=== PATIENT | female | born 1930 | race Caucasian/White ===

== ENCOUNTER 2017-06-17 15:46 | Inpatient (IN) | payer MEDICARE ==
[~2017-06-17 15:46] MED LIST: AMIODARONE 150 MG INJ; CA CHLORIDE 10% 10 ML SYRINGE; EPINEPHrine 0.1 MG/ML SYG; NA BICARBONATE 8.4% 50 ML SYG
[2017-06-17 16:37] LABS: ADD MAN DIFF? NO
[2017-06-17 16:57] LABS: EOSINOPHILS % 0.6 % (0.0-7.0); HEMATOCRIT 31.5 % (37.0-47.0); HEMOGLOBIN 10.3 g/dl (12.0-16.0); LYMPHOCYTES # 2.3 10^3/ul (0.8-2.9); MEAN CORPUSCULAR HEMOGLOBIN 32.7 pg (29.0-33.0); MEAN CORPUSCULAR HGB CONC 32.7 g/dl (32.0-37.0); MEAN PLATELET VOLUME 10.2 fl (7.4-10.4); MONOCYTE # 0.2 10^3/ul (0.3-0.9); NEUTROPHIL # 2.5 10^3/ul (1.6-7.5); NUCLEATED RED BLOOD CELLS% 0.4 /100WBC (0.0-0.0); PLATELET COUNT 155 10^3/UL (140-415); RED BLOOD COUNT 3.15 10^6/ul (4.20-5.40); RED CELL DISTRIBUTION WIDTH 16.3 % (11.5-14.5)
[2017-06-17] MEDS: SOD CHLORIDE 0.9% 2,170 ML IV (16:58)
[2017-06-17 17:03] LABS: INR 1.06; PARTIAL THROMBOPLASTIN TIME 25.9 Sec (25.0-35.0); PROTIME 13.9 Sec (11.9-14.9); PT RATIO 1.1
[2017-06-17 17:08] LABS: ALANINE AMINOTRANSFERASE 24 IU/L (13-69); ALBUMIN/GLOBULIN RATIO 0.72; ALKALINE PHOSPHATASE 88 IU/L (42-121); ANION GAP 16 (8-16); ASPARTATE AMINO TRANSFERASE 35 IU/L (15-46); BILIRUBIN,INDIRECT 0.3 mg/dl (0-1.1); BILIRUBIN,TOTAL 0.3 mg/dl (0.2-1.3); BLOOD UREA NITROGEN 18 mg/dl (7-20); CARBON DIOXIDE 23 mmol/L (21-31); CHLORIDE 108 mmol/L (97-110); CREATINE KINASE 70 IU/L (23-200); CREATININE 0.96 mg/dl (0.44-1.00); GLUCOSE 134 mg/dl (70-220); POTASSIUM 3.7 mmol/L (3.5-5.1); SODIUM 143 mmol/L (135-144); TOTAL PROTEIN 9.5 g/dl (6.1-8.1)
[2017-06-17 17:10] LABS: ACETAMINOPHEN < 10.0 ug/ml (10.0-30.0); CARBAMAZEPINE (TEGRETOL) < 3.0 ug/ml (8.0-12.0); ETHANOL < 10.0 mg/dl; PHENYTOIN (DILANTIN) < 3.0 ug/ml (10.0-20.0); SALICYLATE < 1.0 mg/dl (5.0-30.0)
[2017-06-17 17:13] LABS: VALPROATE < 10 ug/ml (50-100)
[2017-06-17 17:13] LABS: LACTIC ACID 3.1 mmol/L (0.5-2.0)
[2017-06-17 17:16] LABS: TROPONIN-I 0.091 ng/ml (0.00-0.12)
[2017-06-17] MEDS: LEVETIRACETAM 500 MG (PMX) 100 ML IVPB (17:16)
[2017-06-17 18:09] LABS: FREE THYROXINE INDEX (Calc) 3.12 ug/ml (0.65-3.89); T3 UPTAKE 34.7 % (23.5-40.5)
[2017-06-17] MEDS ORDERED: morphine 2 MG INJ IV (19:00)
[2017-06-17] MEDS ORDERED: ACETAMINOPHEN 650MG/20.3ML CUP PO (19:00)
[2017-06-17] MEDS: SOD CHLORIDE 0.9% 100 ML (19:25)
[2017-06-17] MEDS: IOHEXOL 100 ML (19:27)
[2017-06-17] MEDS ORDERED: ACETAMINOPHEN 325 MG TAB PO ×2 (20:30→21:00)
[2017-06-17] MEDS ORDERED: LABETALOL HCL 20MG INJ IV (21:00)
[2017-06-17] MEDS ORDERED: LORAZEPAM 2 MG INJ IV (21:00)
[2017-06-17 21:04] LABS: LACTIC ACID 3.5 mmol/L (0.5-2.0)
[2017-06-17 22:58] LABS: LACTIC ACID 2.4 mmol/L (0.5-2.0)
[2017-06-17 23:07] LABS: ADD UMIC NO; UR ASCORBIC ACID NEGATIVE (NEGATIVE); UR BACTERIA FEW /HPF (NONE SEEN); UR BILIRUBIN (Dip) NEGATIVE (NEGATIVE); UR BLOOD (Dip) NEGATIVE (NEGATIVE); UR CLARITY SLIGHTLY CLOUDY (CLEAR); UR COLOR YELLOW (YELLOW); UR GLUCOSE (Dip) NEGATIVE (NEGATIVE); UR KETONES (Dip) 1+ mg/dL (NEGATIVE); UR LEUKOCYTE ESTERASE (Dip) NEGATIVE Leu/ul (NEGATIVE); UR NITRITE (Dip) NEGATIVE (NEGATIVE); UR RBC 2 /HPF (0-5); UR SPECIFIC GRAVITY (Dip) > 1.060 (1.003-1.030); UR SQUAMOUS EPITHELIAL CELL MODERATE /HPF (FEW); UR TOTAL PROTEIN (Dip) NEGATIVE (NEGATIVE); UR UROBILINOGEN (Dip) 1+ mg/dL (NEGATIVE); UR WBC 1 /HPF (0-5)
[2017-06-17] MEDS: DOCUSATE SODIUM 100 MG CAP PO (23:37)
[2017-06-17 23:38] LABS: AMPHETAMINE/METHAMPHETAMINE Negative (NEGATIVE); BARBITURATES Negative (NEGATIVE); BENZODIAZEPINES Negative (NEGATIVE); CANNABINOIDS Negative (NEGATIVE); COCAINE Negative (NEGATIVE); OPIATES Negative (NEGATIVE)
[2017-06-18] MEDS: SOD CHLORIDE 0.9% 1,000 ML IV ×2 (00:12→10:10)
[2017-06-18] MEDS: ATORVASTATIN 20 MG TAB PO ×2 (00:13→22:49)
[2017-06-18] MEDS: MEMANTINE 10 MG TAB PO ×3 (00:13→22:49)
[2017-06-18] MEDS: PANTOPRAZOLE 40 MG INJ IV (05:34)
[2017-06-18] MEDS: LEVETIRACETAM 500 MG (PMX) 100 ML IVPB ×2 (05:34→22:49)
[2017-06-18] MEDS: LEVOTHYROXINE 50 MCG TAB PO (07:00)
[2017-06-18 07:15] LABS: ADD MAN DIFF? NO
[2017-06-18 07:21] LABS: EOSINOPHILS % 0.7 % (0.0-7.0); HEMATOCRIT 25.7 % (37.0-47.0); HEMOGLOBIN 8.6 g/dl (12.0-16.0); LYMPHOCYTES # 1.4 10^3/ul (0.8-2.9); LYMPHOCYTES % 50.7 % (15.0-51.0); MEAN CORPUSCULAR HEMOGLOBIN 33.1 pg (29.0-33.0); MEAN CORPUSCULAR HGB CONC 33.5 g/dl (32.0-37.0); MEAN CORPUSCULAR VOLUME 98.8 fl (82.0-101.0); MEAN PLATELET VOLUME 10.1 fl (7.4-10.4); MONOCYTE # 0.2 10^3/ul (0.3-0.9); MONOCYTES % 7.8 % (0.0-11.0); NEUTROPHIL # 1.1 10^3/ul (1.6-7.5); NEUTROPHILS % 40.4 % (39.0-77.0); PLATELET COUNT 115 10^3/UL (140-415); RED CELL DISTRIBUTION WIDTH 16.3 % (11.5-14.5)
[2017-06-18 07:21] LABS: WHITE BLOOD COUNT 2.7 10^3/ul (4.8-10.8)
[2017-06-18 07:41] LABS: ALANINE AMINOTRANSFERASE 45 IU/L (13-69); ALBUMIN 2.9 g/dl (3.3-4.9); ALKALINE PHOSPHATASE 76 IU/L (42-121); ANION GAP 12 (8-16); ASPARTATE AMINO TRANSFERASE 56 IU/L (15-46); BILIRUBIN,INDIRECT 0.2 mg/dl (0-1.1); BILIRUBIN,TOTAL 0.2 mg/dl (0.2-1.3); BLOOD UREA NITROGEN 13 mg/dl (7-20); CALCIUM 8.1 mg/dl (8.4-10.2); CARBON DIOXIDE 23 mmol/L (21-31); CHLORIDE 115 mmol/L (97-110); CREATININE 0.82 mg/dl (0.44-1.00); GLUCOSE 95 mg/dl (70-220); POTASSIUM 3.5 mmol/L (3.5-5.1); SODIUM 146 mmol/L (135-144)
[2017-06-18 07:42] LABS: LACTIC ACID 1.3 mmol/L (0.5-2.0)
[2017-06-18] MEDS: DONEPEZIL 5 MG TAB PO (08:55)
[2017-06-18] MEDS: DOCUSATE SODIUM 100 MG CAP PO ×2 (08:55→22:49)
[2017-06-18] MEDS ORDERED: LIDOCAINE 1% (MDV) 20 ML INJ (12:28)
[2017-06-18] MEDS ORDERED: IODIXANOL LOCM 50 ML BTL (12:28)
[2017-06-18] MEDS ORDERED: IODIXANOL LOCM 100 ML BTL (12:28)
[2017-06-18 13:06] LABS: PHENOBARBITAL <5.0 mg/L (15.0-40.0)
[2017-06-18] MEDS: morphine 2 MG INJ IV (15:40)
[2017-06-18] MEDS: ONDANSETRON 4 MG INJ IV (21:01)
[2017-06-19] MEDS ORDERED: EPINEPHrine 0.1 MG/ML SYG
[2017-06-19 05:32] LABS: ADD MAN DIFF? NO
[2017-06-19 05:34] LABS: HEMATOCRIT 29.8 % (37.0-47.0); LYMPHOCYTES # 1.2 10^3/ul (0.8-2.9); LYMPHOCYTES % 26.1 % (15.0-51.0); MEAN CORPUSCULAR HEMOGLOBIN 33.2 pg (29.0-33.0); MEAN CORPUSCULAR HGB CONC 33.6 g/dl (32.0-37.0); MEAN PLATELET VOLUME 10.2 fl (7.4-10.4); MONOCYTE # 0.3 10^3/ul (0.3-0.9); MONOCYTES % 6.1 % (0.0-11.0); NEUTROPHILS % 67.4 % (39.0-77.0); NUCLEATED RED BLOOD CELLS # 0.1 10^3/ul (0.0-0.0); NUCLEATED RED BLOOD CELLS% 1.3 /100WBC (0.0-0.0); PLATELET COUNT 123 10^3/UL (140-415); RED BLOOD COUNT 3.01 10^6/ul (4.20-5.40); RED CELL DISTRIBUTION WIDTH 16.6 % (11.5-14.5)
[2017-06-19 05:34] LABS: WHITE BLOOD COUNT 4.5 10^3/ul (4.8-10.8)
[2017-06-19 06:08] LABS: IRON 70 ug/dl (35-150)
[2017-06-19 06:12] LABS: ALANINE AMINOTRANSFERASE 119 IU/L (13-69); ALBUMIN 3.5 g/dl (3.3-4.9); ALBUMIN/GLOBULIN RATIO 0.83; ALKALINE PHOSPHATASE 73 IU/L (42-121); ANION GAP 25 (8-16); ASPARTATE AMINO TRANSFERASE 179 IU/L (15-46); BILIRUBIN,INDIRECT 0.2 mg/dl (0-1.1); BILIRUBIN,TOTAL 0.2 mg/dl (0.2-1.3); BLOOD UREA NITROGEN 21 mg/dl (7-20); CALCIUM 8.7 mg/dl (8.4-10.2); CARBON DIOXIDE 13 mmol/L (21-31); CHLORIDE 117 mmol/L (97-110); CREATININE 1.51 mg/dl (0.44-1.00); GLUCOSE 155 mg/dl (70-220); POTASSIUM 4.7 mmol/L (3.5-5.1); SODIUM 150 mmol/L (135-144); TOTAL PROTEIN 7.7 g/dl (6.1-8.1)
[2017-06-19] MEDS: PANTOPRAZOLE 40 MG INJ IV (06:15)
[2017-06-19 06:17] LABS: % IRON SATURATION 29 % SAT (22-52); TOTAL IRON BINDING CAPACITY 245 ug/dl (241-421)
[2017-06-19] MEDS: LEVOTHYROXINE 50 MCG TAB PO (07:57)
[2017-06-19] MEDS ORDERED: NORepinephrine 8MG/250 ML (PMX 250 ML (08:53)
[2017-06-19] MEDS ORDERED: PROPOFOL 0 ML (08:53)
[2017-06-19] MEDS: DOCUSATE SODIUM 100 MG CAP PO (09:00)
[2017-06-19] MEDS: MEMANTINE 10 MG TAB PO (09:00)
[2017-06-19] MEDS: DONEPEZIL 5 MG TAB PO (09:00)
[2017-06-19] MEDS: LEVETIRACETAM 500 MG (PMX) 100 ML IVPB (09:00)
[2017-06-19] MEDS ORDERED: EPINEPHrine 4 MG in DEXTROSE 5% 246 ML IV (09:30)
[2017-06-19] MEDS ORDERED: PHENYLephrine 40 MG in DEXTROSE 5% 496 ML IV (09:30)
[2017-06-19] MEDS ORDERED: NORepinephrine 8MG/250 ML (PMX 250 ML IV (09:30)
[2017-06-19] MEDS ORDERED: PHENYLephrine 20MG IN 250 ML 250 ML IV (09:30)
[2017-06-19 09:39] LABS: AADO2 Arterial 545.7 mmHg (7.0-24.0); Allen Test ACCEPTAB; Arterial Base Excess -22.5 mmol/L (-3.0-3); Arterial Blood Gas Oxygen Sat 89.8 mmHG (95.0-100.0); Arterial COHb 0.3 % (0.0-3.0); Arterial HCO3 10.1 mmol/L (22.0-26.0); Arterial MetHb 0.6 % (0.0-1.5); Arterial pCO2 59.5 mmhg (35-45); MODE VENT - AC; Site Right Radial
[2017-06-19] MEDS ORDERED: NA BICARBONATE 8.4% 50 ML SYG ×3 (09:54)
[2017-06-19] MEDS: SODIUM BICARBONATE (IV ADD) 150 MEQ in DEXTROSE 5%-0.45% NACL 850 ML IV (10:24)
[2017-06-19] MEDS ORDERED: NORepinephrine 32 MG in DEXTROSE 5% 218 ML IV (10:30)
[2017-06-19] MEDS: PHENYLephrine 160 MG in DEXTROSE 5% 484 ML IV (10:54)
[2017-06-19] MEDS: NA BICARBONATE 8.4% 50 ML SYG IV (10:54)
[2017-06-19] MEDS: SOD CHLORIDE 0.9% 1,000 ML IV (10:54)
== END 2017-06-19 11:20 | disposition expired | DRG 40 ==
LOC: ICU 18:55 → E/R 15:46 → ICU 06-18 15:25
PROC: 06H03DZ Insertion of Intraluminal Device into Inferior Vena Cava, Percutaneous Approach (ICD-10-PCS; principal; 2017-06-18 12:00)
PROC: 0BH17EZ Insertion of Endotracheal Airway into Trachea, Via Natural or Artificial Opening (ICD-10-PCS; 2017-06-18 12:00)
PROC: 5A1935Z Respiratory Ventilation, Less than 24 Consecutive Hours (ICD-10-PCS; 2017-06-18 12:00)
PROC: 06HM33Z Insertion of Infusion Device into Right Femoral Vein, Percutaneous Approach (ICD-10-PCS; 2017-06-18 12:00)
PROC: 5A12012 Performance of Cardiac Output, Single, Manual (ICD-10-PCS; 2017-06-18 12:00)
PROC: 4A033R1 Measurement of Arterial Saturation, Peripheral, Percutaneous Approach (ICD-10-PCS; 2017-06-18 12:00)
DX: S06.6X0A Traumatic subarachnoid hemorrhage without loss of consciousness, initial encounter (principal); I26.99 Other pulmonary embolism without acute cor pulmonale; A41.9 Sepsis, unspecified organism; R65.21 Severe sepsis with septic shock; I82.402 Acute embolism and thrombosis of unspecified deep veins of left lower extremity; E87.2 Acidosis; I46.9 Cardiac arrest, cause unspecified; E78.00 Pure hypercholesterolemia, unspecified; I10 Essential (primary) hypertension; G30.9 Alzheimer's disease, unspecified; F02.80 Dementia in other diseases classified elsewhere, unspecified severity, without behavioral disturbance, psychotic disturbance, mood disturbance, and anxiety; I25.10 Atherosclerotic heart disease of native coronary artery without angina pectoris; E03.9 Hypothyroidism, unspecified; W19.XXXA Unspecified fall, initial encounter; Y92.038 Other place in apartment as the place of occurrence of the external cause
CPT/HCPCS: 36600; 37191; 70450; 70496; 70498; 71045; 72125; 76937; 80053; 80156; 80164; 80184; 80185; 80306; 80307; 81001; 81003; 82550; 82728; 82803; 82962; 83540; 83605; 84436; 84443; 84479; 84484; 85025; 85610; 85730; 87040; 87086; 92950; 93005; 93970; 94002; 94770; 96374; 96375; 96376; 99291-25